=== PATIENT | female | born 1940 | race Caucasian/White ===

== ENCOUNTER 2020-04-29 16:39 | Inpatient (IN) ==
[2020-04-29 17:31] LABS: Basophils # 0.1 K/mcL (0.0-0.2); Basophils % 1.1 %; Eosinophils # 0.3 K/mcL (0.0-0.6); Eosinophils % 4.6 %; Hematocrit 35.5 % (35.3-44.9); Hemoglobin 10.6 g/dL (11.5-15.4); Immature Granulocytes % 0.2 % (0-4); Lymphocytes # 1.3 K/mcL (0.6-4.6); Lymphocytes % 22.7 %; Mean Corpuscular HGB Conc 29.9 g/dL (31.6-35.5); Mean Corpuscular Hemoglobin 29.3 pg (28.0-33.3); Mean Corpuscular Volume 98.1 fL (83.0-100.0); Mean Platelet Volume 10.8 fL (9.4-12.4); Monocytes # 0.1 K/mcL (0.0-1.3); Monocytes % 2.3 %; Neutrophils # 3.9 K/mcL (1.6-8.9); Platelet Count 238 K/mcL (140-400); Red Blood Count 3.62 M/mcL (3.82-4.97); Red Cell Distribution Width 14.6 % (11.5-14.5); Segmented Neutrophils % 69.1 %; White Blood Count 5.7 K/mcL (4.3-11.1)
[2020-04-29 17:50] LABS: Alanine Aminotransferase 30 Units/L (7-52); Albumin 3.2 g/dL (3.5-5.7); Alkaline Phosphatase 140 Units/L (34-104); Aspartate Amino Transferase 57 Units/L (13-39); BUN/Creatinine Ratio 22 (6-26); Bilirubin,Direct 0.1 mg/dL (0.0-0.2); Bilirubin,Indirect 0.4 mg/dL (0.0-1.0); Bilirubin,Total 0.5 mg/dL (0.3-1.0); Blood Urea Nitrogen 76 mg/dL (8-23); Calcium 9.1 mg/dL (8.6-10.3); Carbon Dioxide 25 mEq/L (23-29); Chloride 103 mEq/L (98-107); Globulin 3.3 g/dL (2.4-3.5); Glucose 216 mg/dL (70-105); Osmolality,Calculated 315 (280-300); Potassium 5.1 mEq/L (3.5-5.1); Sodium 138 mEq/L (136-145); Total Protein 6.5 g/dL (6.4-8.9); eGFR For African Americans 16 (> 60); eGFR For Non-African Americans 13 (> 60)
[2020-04-29 17:56] LABS: Troponin I < 0.03 ng/mL (< 0.04)
[2020-04-29 18:03] LABS: Platelet Estimate Normal (Normal)
[2020-04-29] MEDS ORDERED: Naloxone 0.4 MG/ML INJ IVP PRN (19:49)
[2020-04-29] MEDS ORDERED: Acetaminophen 325 MG TABLET PO PRN (19:49)
[2020-04-29] MEDS ORDERED: D5% in Water 1,000 ML IVC PRN (19:53)
[2020-04-29] MEDS ORDERED: *HR* Dextrose 50 % in Water (Vial) 50 ML VIAL IVP PRN (19:53)
[2020-04-29] MEDS ORDERED: Dextrose Gel 15 GM/37.5 ML TUBE PO PRN ×2 (19:53)
[2020-04-29 22:21] LABS: Bacteria,Urine Few per hpf (None-Few); Bilirubin,Urine Negative (Negative); Blood,Urine Negative (Negative); Clarity,Urine Clear (Clear); Color,Urine Light-Yellow (Yellow); Glucose,Urine (UA) Normal (Normal); Hyaline Casts,Urine Few per lpf (None Seen); Ketones,Urine Negative (Negative); Leukocyte Esterase,Urine Moderate (Negative); Mucus,Urine Few per lpf (None-Few); Nitrite,Urine Negative (Negative); PH,Urine 5.5 pH Units (5.0-8.0); Protein,Urine 70 mg/dL (Neg-Trace); RBC,Urine 0-3 per hpf (0-3); Specific Gravity,Urine 1.018 (1.010-1.025); Squamous Epithelial Cell,Urine Few per hpf (None-Few); Urobilinogen,Urine Normal (Normal); WBC,Urine 30-50 per hpf (0-3)
[2020-04-29] MEDS: Insulin LISPRO 300 UNITS/3 ML VIAL SQ SCH (22:22)
[2020-04-29] MEDS: Ipratropium/Albuterol Neb 3 ML IH SCH (22:26)
[2020-04-29] MEDS: GuaiFENesin Liq 200 MG/10 ML UDC PO PRN (22:29)
[2020-04-29 23:50] LABS: Adenovirus Not Detected (Not Detect); Bordetella Pertussis Not Detected (Not Detect); Chlamydophila pneumoniae Not Detected (Not Detect); Coronavirus 229E Not Detected (Not Detect); Coronavirus HKU1 Not Detected (Not Detect); Coronavirus NL63 Not Detected (Not Detect); Coronavirus OC43 Not Detected (Not Detect); Human Metapneumovirus Not Detected (Not Detect); Human Rhinovirus/Enterovirus Not Detected (Not Detect); Influenza A Subtype 2009 H1 Not Detected (Not Detect); Influenza B Not Detected (Not Detect); Mycoplasma pneumoniae Not Detected (Not Detect); Parainfluenza Virus 1 Not Detected (Not Detect); Parainfluenza Virus 2 Not Detected (Not Detect); Parainfluenza Virus 3 Not Detected (Not Detect); Parainfluenza Virus 4 Not Detected (Not Detect); Respiratory Syncytial Virus Not Detected (Not Detect)
[2020-04-30] MEDS ORDERED: 0.9 % Sodium Chloride 1,000 ML IVC SCH (02:45)
[2020-04-30] MEDS ORDERED: *HR* Promethazine 25 MG/ML VIAL IM PRN ×2 (03:40→14:25)
[2020-04-30] MEDS: Ipratropium/Albuterol Neb 3 ML IH SCH ×4 (04:37→22:01)
[2020-04-30] MEDS: MethylPREDNISolone 40 MG/ML VIAL IVP SCH ×2 (05:13→16:37)
[2020-04-30] MEDS: *HR* Heparin 5,000 UNIT/ML VIAL SQ SCH ×2 (05:13→16:37)
[2020-04-30 06:07] LABS: Hematocrit 33.8 % (35.3-44.9); Hemoglobin 9.8 g/dL (11.5-15.4); Mean Corpuscular Hemoglobin 28.5 pg (28.0-33.3); Mean Corpuscular Volume 98.3 fL (83.0-100.0); Mean Platelet Volume 10.7 fL (9.4-12.4); Platelet Count 209 K/mcL (140-400); Red Blood Count 3.44 M/mcL (3.82-4.97); Red Cell Distribution Width 14.6 % (11.5-14.5); White Blood Count 5.8 K/mcL (4.3-11.1)
[2020-04-30 06:27] LABS: Magnesium 1.8 mg/dL (1.6-2.6); Phosphorous 4.3 mg/dL (2.7-4.5)
[2020-04-30 06:28] LABS: Calcium 8.6 mg/dL (8.6-10.3); Potassium 5.2 mEq/L (3.5-5.1)
[2020-04-30] MEDS: cefTRIAXone 1,000 MG in 0.9 % Sodium Chloride Mini Bag 100 ML IVPB SCH (08:27)
[2020-04-30] MEDS: Insulin LISPRO 300 UNITS/3 ML VIAL SQ SCH ×4 (08:27→20:37)
[2020-04-30] MEDS ORDERED: Perflutren Lipid Microsphere 1.3 ML in 0.9 % Sodium Chloride 8.7 ML IVP PRN (13:21)
[2020-04-30] MEDS: amLODIPine 5 MG TABLET PO SCH (16:05)
[2020-04-30] MEDS: Ondansetron 4 MG/2 ML VIAL IVP PRN (16:05)
[2020-04-30] MEDS: GuaiFENesin Liq 200 MG/10 ML UDC PO PRN (16:05)
[2020-04-30] MEDS: Azithromycin 500 MG in 0.9 % Sodium Chloride 250 ML IVPB SCH (16:34)
[2020-04-30 18:58] LABS: Sodium, Urine 54.2 mEq/L
[2020-04-30 19:15] LABS: Red Cell Distribution Width 14.6 % (11.5-14.5)
[2020-04-30] MEDS ORDERED: Metoclopramide 10 MG/2 ML VIAL IVP ONE (19:17)
[2020-04-30 19:18] LABS: Hematocrit 34.4 % (35.3-44.9); Hemoglobin 10.4 g/dL (11.5-15.4); Immature Granulocytes % 0.4 % (0-4); Lymphocytes # 0.8 K/mcL (0.6-4.6); Lymphocytes % 18.7 %; Mean Corpuscular HGB Conc 30.2 g/dL (31.6-35.5); Mean Corpuscular Hemoglobin 29.5 pg (28.0-33.3); Mean Corpuscular Volume 97.5 fL (83.0-100.0); Monocytes % 0.2 %; Neutrophils # 3.6 K/mcL (1.6-8.9); Platelet Count 205 K/mcL (140-400); Red Blood Count 3.53 M/mcL (3.82-4.97); Segmented Neutrophils % 80.7 %; White Blood Count 4.5 K/mcL (4.3-11.1)
[2020-04-30 19:58] LABS: Platelet Estimate Normal (Normal)
[2020-04-30 20:00] LABS: Calcium 8.5 mg/dL (8.6-10.3); Potassium 5.9 mEq/L (3.5-5.1)
[2020-04-30] MEDS: Sodium Bicarbonate 150 MEQ in D5% in Water 1,000 ML IVC SCH (20:38)
[2020-05-01] MEDS ORDERED: Insulin DETEMIR 100 UNIT/ML X5UNITS SQ ONE ×2 (00:55→04:48)
[2020-05-01] MEDS: Ipratropium/Albuterol Neb 3 ML IH SCH ×4 (03:34→22:02)
[2020-05-01 05:54] LABS: Hematocrit 30.4 % (35.3-44.9); Hemoglobin 9.3 g/dL (11.5-15.4); Immature Granulocytes % 0.9 % (0-4); Lymphocytes # 0.7 K/mcL (0.6-4.6); Lymphocytes % 13.1 %; Mean Corpuscular HGB Conc 30.6 g/dL (31.6-35.5); Mean Corpuscular Hemoglobin 29.3 pg (28.0-33.3); Mean Corpuscular Volume 95.9 fL (83.0-100.0); Mean Platelet Volume 10.5 fL (9.4-12.4); Monocytes % 0.6 %; Neutrophils # 4.6 K/mcL (1.6-8.9); Platelet Count 176 K/mcL (140-400); Red Blood Count 3.17 M/mcL (3.82-4.97); Red Cell Distribution Width 14.6 % (11.5-14.5); Segmented Neutrophils % 85.4 %; White Blood Count 5.4 K/mcL (4.3-11.1)
[2020-05-01] MEDS: MethylPREDNISolone 40 MG/ML VIAL IVP SCH ×2 (05:58→18:40)
[2020-05-01] MEDS: Sodium Bicarbonate 150 MEQ in D5% in Water 1,000 ML IVC SCH ×2 (06:00→18:43)
[2020-05-01 06:14] LABS: Calcium 8.2 mg/dL (8.6-10.3); Magnesium 1.8 mg/dL (1.6-2.6); Phosphorous 4.6 mg/dL (2.7-4.5); Potassium 4.7 mEq/L (3.5-5.1)
[2020-05-01] MEDS: amLODIPine 5 MG TABLET PO SCH (07:53)
[2020-05-01] MEDS: cefTRIAXone 1,000 MG in 0.9 % Sodium Chloride Mini Bag 100 ML IVPB SCH (07:53)
[2020-05-01] MEDS: Ondansetron 4 MG/2 ML VIAL IVP PRN ×2 (07:53→18:40)
[2020-05-01] MEDS: Insulin LISPRO 300 UNITS/3 ML VIAL SQ SCH ×4 (07:54→20:57)
[2020-05-01] MEDS: Insulin DETEMIR 100 UNIT/ML X5UNITS SQ SCH (11:58)
[2020-05-01] MEDS: Azithromycin 500 MG in 0.9 % Sodium Chloride 250 ML IVPB SCH (11:59)
[2020-05-01] MEDS ORDERED: Sodium Bicarbonate 150 MEQ in 0.45 % Sodium Chloride 1,000 ML IVC SCH (12:51)
[2020-05-01] MEDS ORDERED: Sodium Bicarbonate 150 MEQ in Water for inj. (sterile) 1,000 ML IVC SCH (13:15)
[2020-05-01] MEDS ORDERED: Azithromycin 250 MG TABLET PO SCH (16:00)
[2020-05-02 01:04] LABS: Hematocrit 31.9 % (35.3-44.9); Hemoglobin 9.6 g/dL (11.5-15.4); Immature Granulocytes % 1.3 % (0-4); Lymphocytes # 0.6 K/mcL (0.6-4.6); Lymphocytes % 8.3 %; Mean Corpuscular HGB Conc 30.1 g/dL (31.6-35.5); Mean Corpuscular Hemoglobin 28.4 pg (28.0-33.3); Mean Corpuscular Volume 94.4 fL (83.0-100.0); Mean Platelet Volume 10.8 fL (9.4-12.4); Monocytes # 0.1 K/mcL (0.0-1.3); Neutrophils # 6.9 K/mcL (1.6-8.9); Platelet Count 186 K/mcL (140-400); Red Blood Count 3.38 M/mcL (3.82-4.97); Red Cell Distribution Width 14.6 % (11.5-14.5); Segmented Neutrophils % 89.4 %; White Blood Count 7.7 K/mcL (4.3-11.1)
[2020-05-02 01:12] LABS: Potassium 3.9 mEq/L (3.5-5.1)
[2020-05-02 01:13] LABS: Calcium 7.9 mg/dL (8.6-10.3); Magnesium 1.9 mg/dL (1.6-2.6)
[2020-05-02] MEDS: Ipratropium/Albuterol Neb 3 ML IH SCH ×2 (03:43→09:26)
[2020-05-02] MEDS: MethylPREDNISolone 40 MG/ML VIAL IVP SCH (05:46)
[2020-05-02] MEDS: Insulin LISPRO 300 UNITS/3 ML VIAL SQ SCH ×2 (07:21→11:22)
[2020-05-02] MEDS: Insulin DETEMIR 100 UNIT/ML X5UNITS SQ SCH (07:22)
[2020-05-02] MEDS: cefTRIAXone 1,000 MG in 0.9 % Sodium Chloride Mini Bag 100 ML IVPB SCH (07:22)
[2020-05-02] MEDS: amLODIPine 5 MG TABLET PO SCH (07:22)
[2020-05-02] MEDS: Sodium Bicarbonate 150 MEQ in D5% in Water 1,000 ML IVC SCH (07:23)
[2020-05-02 07:40] LABS: Estimated Average Glucose 186 mg/dl
[2020-05-02 11:21] VITALS: BP 129/59
== END 2020-05-02 12:13 | disposition other institution (70) | DRG 698 ==
LOC: 2ANU 16:39 → EMEROOARM 16:39 → SUATTDRO 20:50 → 2ANU 21:52
PROVIDERS: ADMIT Student in an Organized Health Care Education/Training Program; ATTEND Pharmacist